=== PATIENT | female | born 1965 | race Caucasian/White ===

== ENCOUNTER 2019-05-29 14:35 | Emergency (ER) | payer OTHER, MEDICAID, SELFPAY ==
[2019-05-29 14:42] VITALS: BP 130/83; PULSE 103; RESP 16; TEMP 37.4; O2SAT 100; BMI 43.4
--- NOTE | 2019-05-29 14:46 | DI.RAD.S_ITS ---
PROCEDURE: XR SHOULDER RT MIN 2V INDICATIONS: right shoulder pain 6 mohnths TECHNIQUE: 3 views of the shoulder were acquired. COMPARISON: None. FINDINGS: Bones: Patient is status post prior reverse right shoulder arthroplasty with anatomic right shoulder alignment. No acute fractures or dislocations. No gross hardware loosening or failure. Acromioclavicular joint osteoarthritic changes are seen. No suspicious bony lesions. Visualized ribs appear intact. Soft tissues: No suspicious soft tissue calcifications. IMPRESSION: Prior right shoulder reverse arthroplasty with anatomic shoulder alignment. No acute fracture or dislocation. No gross hardware complication. Right acromioclavicular joint osteoarthritis. Dictated by: Pablo Mcwilliams M.D. on 05/29/2019 at 15:18 Approved by: Pablo Mcwilliams M.D. on 05/29/2019 at 15:20
[2019-05-29 15:30] VITALS: BP 132/61; PULSE 98; RESP 18; O2SAT 99
[2019-05-29] MEDS: KETOROLAC 60 MG/2 ML VIAL IM (16:48)
[2019-05-29] MEDS: CYCLOBENZAPRINE 10 MG TABLET PO (16:48)
[2019-05-29] MEDS: LIDOCAINE PATCH 1 EACH ADH..PATCH TOP (16:49)
[2019-05-29] MEDS: HYDROCODONE/ACET 5/325 TABLET 1 TAB PO (17:35)
[2019-05-29 17:47] VITALS: BP 115/69; PULSE 92; RESP 17; O2SAT 99
--- NOTE | 2019-05-29 17:50 | ED_ITS ---
HPI - Extremity Injury (Upper) <Pricilla Wagoner, EQUITIES ANALYST-BC - Last Filed: 05/29/19 18:10> General Chief Complaint: Extremity Injury, Upper Stated Complaint: states bad right shoulder, has bad joints. Time Seen by Provider: 05/29/19 16:04 Source: patient Mode of arrival: Wheelchair Limitations: no limitations History of Present Illness HPI narrative: The patient is a 54-year-old female ex smoker with history of arthritis who presents with a chief complaint of right shoulder pain. She states that she has had a right shoulder replacement. She states that her pain has been bad over the past few months, but got really bad over the past few days. She complains of decreased range of motion. She has tried no success. She states she has an appointment with an orthopedist in [place] next week. She states she has not fallen or had any trauma to the area. No redness or swelling for patient. Related Data Home Medications Medication Instructions Recorded Confirmed blood-glucose meter [True Metrix 05/29/19 05/29/19 Air Glucose Meter] ferrous sulfate 325 mg PO DAILY 05/29/19 05/29/19 glipizide 10 mg PO BID 05/29/19 05/29/19 insulin glargine U-300 conc 42 unit SUBCUT DAILY 05/29/19 05/29/19 [Toujeo SoloStar U-300 Insulin] lancets [TRUEplus Lancets] 05/29/19 05/29/19 liraglutide [Victoza 2-Ruddy] See Rx Instructions .ROUTE .COMPLEX 05/29/19 losartan 50 mg PO DAILY 05/29/19 05/29/19 lovastatin 20 mg PO QPM 05/29/19 05/29/19 metformin 1,000 mg PO BID 05/29/19 05/29/19 nortriptyline 75 mg PO QPM 05/29/19 05/29/19 pantoprazole 40 mg PO DAILY 05/29/19 05/29/19 sertraline 50 mg PO DAILY 05/29/19 05/29/19 Previous Rx's Medication Instructions Recorded cyclobenzaprine 10 mg PO TID PRN #20 tab 05/29/19 hydrocodone-acetaminophen [[place]] 1 tab PO Q4-6H PRN #5 tab 05/29/19 Allergies Allergy/AdvReac Type Severity Reaction Status Date / Time amoxicillin [From Augmentin] Allergy Verified 05/29/19 14:42 clavulanic acid Allergy Verified 05/29/19 14:42 [From Augmentin] quinine Allergy Verified 05/29/19 14:42 Sulfa (Sulfonamide Allergy Verified 05/29/19 14:42 Antibiotics) Review of Systems <MARLO Salazar - Last Filed: 05/29/19 18:10> Review of Systems Narrative: GENERAL: Denies chills, fatigue, malaise, fever, sweats. HEENT: Denies sinus pain, ear pain, sore throat, difficulty swallowing, dizziness. RESPIRATORY: Denies dyspnea, cough, wheezing, hemoptysis, sputum. CARDIOVASCULAR: Denies chest pain, palpitations, orthopnea, edema, GASTROINTESTINAL: Denies nausea, vomiting, abdominal pain, diarrhea, constipation, melena. : Denies dysuria, frequency, incontinence, hematuria, urinary retention. MUSCULOSKELETAL: See HPI SKIN: Denies rash, skin lesions, or other NEUROLOGIC: Denies weakness, headache, numbness, change in speech, confusion, seizures, incoordination. PSYCHIATRIC: No concerning psychosocial issues. 12 point review of systems is negative except for those stated above PFSH <MARLO Salazar - Last Filed: 05/29/19 18:10> Social History Smoking Status: Unknown if ever smoked Social History Smoking Status: Unknown if ever smoked Exam <MARLO Salazar - Last Filed: 05/29/19 18:10> Narrative Exam Narrative: GENERAL: This is a well-nourished, well-developed patient, appears uncomfortable HEAD: Atraumatic. Normocephalic. No temporal or scalp tenderness. EYES: Pupils equal round and reactive. Extraocular motions intact. No scleral icterus. No injection or drainage. ENT: Nose without bleeding, purulent drainage or septal hematoma. Throat without erythema, tonsillar hypertrophy or exudate. Uvula midline. Airway patent. NECK: Trachea midline. No JVD or lymphadenopathy. Supple, nontender, no meningeal signs. CARDIOVASCULAR: Regular rate and rhythm RESPIRATORY: No cough. No increased respiratory effort. No accessory muscle use. No stridor. No retractions. EXTREMITIES: Positive radial pulse right hand. Decreased range of motion all syed right shoulder. Patient would not allow me to evaluate range of motion. Is able to shrug shoulder. Good strength noted right hand and right wrist. BACK: Nontender without deformity or crepitance. No flank tenderness. NEURO: AOx3. SKIN: No rash or erythema ecchymosis or rash noted on right shoulder Initial Vital Signs Initial Vital Signs: Vital Signs Temperature 99.3 F 05/29/19 14:42 Pulse Rate 103 H 05/29/19 14:42 Respiratory Rate 16 05/29/19 14:42 Blood Pressure 130/83 05/29/19 14:42 Pulse Oximetry 100 05/29/19 14:42 <Germaine Hugo MD - Last Filed: 05/29/19 19:44> Initial Vital Signs Initial Vital Signs: Vital Signs Temperature 99.3 F 05/29/19 14:42 Pulse Rate 103 H 05/29/19 14:42 Respiratory Rate 16 05/29/19 14:42 Blood Pressure 130/83 05/29/19 14:42 Pulse Oximetry 100 05/29/19 14:42 Course <MARLO Salazar - Last Filed: 05/29/19 18:10> Orders Ordered: ED Orders 05/29/19 14:46 XR shoulder RT min 2V Stat Discontinued Medications Hydrocodone Bitart/Acetaminophen ([place] 5/325) 1 tab PO NOW ONE Stop: 05/29/19 17:31 Last Admin: 05/29/19 17:35 Dose: 1 tab Documented by: ALVARO Cyclobenzaprine HCl (Flexeril) 10 mg PO NOW ONE Stop: 05/29/19 16:17 Last Admin: 05/29/19 16:48 Dose: 10 mg Documented by: ALVARO Ketorolac Tromethamine (Toradol) 60 mg IM NOW ONE Stop: 05/29/19 16:17 Last Admin: 05/29/19 16:48 Dose: 60 mg Documented by: ALVARO Lidocaine (Lidoderm) 1 each TOP NOW ONE Stop: 05/29/19 16:17 Last Admin: 05/29/19 16:49 Dose: 1 each Documented by: ALVARO Vital Signs Vital signs: Vital Signs - 8 hr 05/29/19 14:42 05/29/19 15:30 05/29/19 17:47 Temperature 99.3 F Pulse Rate 103 H 98 H 92 H Respiratory Rate 16 18 17 Blood Pressure 130/83 Blood Pressure [Left Arm] 132/61 115/69 Pulse Oximetry 100 99 99 <Germaine Hugo MD - Last Filed: 05/29/19 19:44> Orders Ordered: ED Orders 05/29/19 14:46 XR shoulder RT min 2V Stat Discontinued Medications Hydrocodone Bitart/Acetaminophen ([place] 5/325) 1 tab PO NOW ONE Stop: 05/29/19 17:31 Last Admin: 05/29/19 17:35 Dose: 1 tab Documented by: ALVARO Cyclobenzaprine HCl (Flexeril) 10 mg PO NOW ONE Stop: 05/29/19 16:17 Last Admin: 05/29/19 16:48 Dose: 10 mg Documented by: ALVARO Ketorolac Tromethamine (Toradol) 60 mg IM NOW ONE Stop: 05/29/19 16:17 Last Admin: 05/29/19 16:48 Dose: 60 mg Documented by: ALVARO Lidocaine (Lidoderm) 1 each TOP NOW ONE Stop: 05/29/19 16:17 Last Admin: 05/29/19 16:49 Dose: 1 each Documented by: ALVARO Vital Signs Vital signs: Vital Signs - 8 hr 05/29/19 14:42 05/29/19 15:30 05/29/19 17:47 Temperature 99.3 F Pulse Rate 103 H 98 H 92 H Respiratory Rate 16 18 17 Blood Pressure 130/83 Blood Pressure [Left Arm] 132/61 115/69 Pulse Oximetry 100 99 99 MDM - Extremity Injury (Upper) <MARLO Salazar - Last Filed: 05/29/19 18:10> Imaging Data Shoulder x-ray: Radiologist's impression: HildaJeani 54 F [address] [address] XRay Report Signed Patient: Alek Stevens#: [id number] : 1965Acct:[id number] Age/Sex: 54 / FDate of Service: 05/29/19 Loc: ED Accession Number: [id number] Procedure: XR shoulder RT min 2V Ordering Provider: Germaine Hugo MD PROCEDURE: XR SHOULDER RT MIN 2V INDICATIONS: right shoulder pain 6 mohnths TECHNIQUE: 3 views of the shoulder were acquired. COMPARISON: None. FINDINGS: Bones: Patient is status post prior reverse right shoulder arthroplasty with anatomic right shoulder alignment. No acute fractures or dislocations. No gross hardware loosening or failure. Acromioclavicular joint osteoarthritic changes are seen. No suspicious bony lesions. Visualized ribs appear intact. Soft tissues: No suspicious soft tissue calcifications. IMPRESSION: Prior right shoulder reverse arthroplasty with anatomic shoulder alignment. No acute fracture or dislocation. No gross hardware complication. Right acromioclavicular joint osteoarthritis. Dictated by: Pablo Mcwilliams M.D. on 05/29/2019 at 15:18 Approved by: Pablo Mcwilliams M.D. on 05/29/2019 at 15:20 MDM Narrative Medical decision making narrative: The patient is a 54-year-old female with long history of arthritis who presents for chief complaint of right shoulder pain. She has an upcoming appointment with an orthopedist but states that the pain is too bad to wait till then. She is neurovascularly intact. She has no acute findings on her x-ray. I did run an audit on a controlled substance direct 3 for [facility] in found no recent narcotic prescriptions. I discussed at length coming back to the emergency department for any acute findings. The patient was placed in a sling. I did discuss the fact that slings are not recommended due to frozen shoulder, but I did help her pain and she is willing to take that risk. She is given Flexeril and Vicodin in the emergency de partment was prescribed small prescriptions of each. I discussed at length following up with PCP as well as her orthopedist. Patient has no questions or concerns upon discharge. Discharge Plan Departure Patient Disposition: Home Clinical Impression: Chronic left shoulder pain Discharge Date/Time: 05/29/19 18:00 Instructions: How to Use a Sling, How To Perform RICE (Rest, Ice, Compress, Elevate), DI for Shoulder Pain Activity Restrictions/Additional Instructions: Your shoulder x-ray does not show any acute fracture, dislocation or concerning findings. Please follow up with primary care provider as well as her orthopedist. I have given you small prescriptions of muscle relaxers and pain medication For the meantime. Please use rest ice compression. Please come back to the emergency department for any acute concerns such as concern of heart attack or stroke. Prescriptions: New hydrocodone-acetaminophen [[place]] 5-325 mg tablet 1 tab PO Q4-6H PRN (Reason: pain) Qty: 5 RF: 0 cyclobenzaprine 10 mg tablet 10 mg PO TID PRN (Reason: muscle spasm) Qty: 20 RF: 0 No Action losartan 50 mg tablet 50 mg PO DAILY RF: 0 (DME) blood-glucose meter [True Metrix Air Glucose Meter] [facility] MISCELLANEOUS RF: 0 glipizide 10 mg tablet 10 mg PO BID RF: 0 nortriptyline 75 mg capsule 75 mg PO QPM RF: 0 pantoprazole 40 mg tablet,delayed release (DR/EC) 40 mg PO DAILY RF: 0 ferrous sulfate 325 mg (65 mg iron) tablet 325 mg PO DAILY RF: 0 metformin 1,000 mg tablet 1,000 mg PO BID RF: 0 lovastatin 20 mg tablet 20 mg PO QPM RF: 0 sertraline 50 mg tablet 50 mg PO DAILY RF: 0 Victoza 2-Ruddy 0.6 mg/0.1 mL (18 mg/3 mL) pen injector See Rx Instructions .ROUTE .COMPLEX RF: 0 (DME) lancets [TRUEplus Lancets] 30 gauge [facility] MISCELLANEOUS RF: 0 [employer] SoloStar U-300 Insulin 300 unit/mL (1.5 mL) insulin pen 42 unit SUBCUT DAILY RF: 0
== END 2019-05-29 18:00 | disposition home or self-care (01) ==
PROVIDERS: Emergency Provider Nurse Practitioner Family
DX: M25.511 Pain in right shoulder (principal)
CPT/HCPCS: 73030; 96372; 99283; J1885

== ENCOUNTER 2019-10-13 10:10 | Outpatient (CLI) | payer OTHER, MEDICAID, SELFPAY ==
--- NOTE | 2019-10-13 13:42 | PT-OP ANOTE ---
Wheelchair evaluation only find the paper copy in her chart.
== END 2019-11-11 13:16 | disposition home or self-care (01) ==
LOC: PHYS 10:14
PROVIDERS: Referring Provider Nurse Practitioner Family; Visit Provider Nurse Practitioner Family
DX: Z99.3 Dependence on wheelchair (principal)
CPT/HCPCS: 97161

== ENCOUNTER 2019-12-08 20:10 | Emergency (ER) | payer OTHER, MEDICAID, SELFPAY ==
--- NOTE | 2019-12-08 20:16 | DI.RAD.S_ITS ---
PROCEDURE: XR SHOULDER RT MIN 2V INDICATIONS: pain, swelling TECHNIQUE: 2 views of the shoulder were acquired. COMPARISON: [facility], CR, XR SHOULDER RT MIN 2V, 05/29/2019, 14:53. FINDINGS: Bones: Patient is status post reverse right shoulder arthroplasty. There is high riding proximal humerus in relation to acetabular component suggestive of dislocation of the prosthesis. No gross fracture is seen. No suspicious bony lesions. Visualized ribs appear intact. Soft tissues: No suspicious soft tissue calcifications. IMPRESSION: Finding is concerning for dislocated right shoulder arthroplasty hardware. No gross fracture is seen. Dictated by: Pablo Mcwilliams M.D. on 12/08/2019 at 20:35 Approved by: Pablo Mcwilliams M.D. on 12/08/2019 at 20:37
[2019-12-08 20:20] VITALS: PULSE 88
[2019-12-08 20:57] VITALS: BP 135/74; PULSE 77; RESP 19; O2SAT 97
--- NOTE | 2019-12-08 21:14 | ED_ITS ---
HPI - Extremity Injury (Upper) General Chief Complaint: Extremity Injury, Upper Stated Complaint: GLF/ Shoulder Pain Time Seen by Provider: 12/08/19 20:12 Source: patient and EMS Mode of arrival: EMS Limitations: no limitations History of Present Illness HPI narrative: 54-year-old female nonsmoker with history of diabetes and multiple prior orthopedic surgeries presents by EMS with a chief complaint of severe right shoulder pain. While walking she tripped and fell onto her right shoulder and now has significant pain with any range of motion or palpation. She denies any head neck or back pain. She has full recall of the event. She denies any numbness, weakness or tingling. She denies any elbow or wrist pain on the affected side. Range of motion or palpation hurts and resting it helps improve the symptoms. Patient was given an IV, fentanyl 200 micro g IV, and a sling prior to arrival and has some improvement of symptoms. MD complaint: injury to: right Onset (ago): minute(s) Other injuries: none Handedness: right Place: home Severity: moderate Relieving factors: rest Exacerbating factors: movement of extremity Context: fall and direct blow Associated symptoms: denies other symptoms Related Data Home Medications Medication Instructions Recorded Confirmed blood-glucose meter [True Metrix 05/29/19 05/29/19 Air Glucose Meter] ferrous sulfate 325 mg PO DAILY 05/29/19 05/29/19 glipizide 10 mg PO BID 05/29/19 05/29/19 insulin glargine U-300 conc 42 unit SUBCUT DAILY 05/29/19 05/29/19 [Toujeo SoloStar U-300 Insulin] lancets [TRUEplus Lancets] 05/29/19 05/29/19 liraglutide [Victoza 2-Ruddy] See Rx Instructions .ROUTE .COMPLEX 05/29/19 losartan 50 mg PO DAILY 05/29/19 05/29/19 lovastatin 20 mg PO QPM 05/29/19 05/29/19 metformin 1,000 mg PO BID 05/29/19 05/29/19 nortriptyline 75 mg PO QPM 05/29/19 05/29/19 pantoprazole 40 mg PO DAILY 05/29/19 05/29/19 sertraline 50 mg PO DAILY 05/29/19 05/29/19 Previous Rx's Medication Instructions Recorded cyclobenzaprine 10 mg PO TID PRN #20 tab 05/29/19 hydrocodone-acetaminophen [[place]] 1 tab PO Q4-6H PRN #5 tab 05/29/19 hydrocodone-acetaminophen 1 tab PO Q4-6H PRN #10 tab 12/08/19 Allergies Allergy/AdvReac Type Severity Reaction Status Date / Time amoxicillin [From Augmentin] Allergy Verified 12/08/19 20:16 clavulanic acid Allergy Verified 12/08/19 20:16 [From Augmentin] quinine Allergy Verified 12/08/19 20:16 Sulfa (Sulfonamide Allergy Verified 12/08/19 20:16 Antibiotics) Review of Systems Constitutional Constitutional: Denies chills, Denies fatigue, Denies fever(s), Denies frequent falls, Denies lethargy and Denies weakness Eyes Eyes: Denies change in vision, Denies eye discharge, Denies irritation and Denies loss of vision ENT Ears, Nose, Mouth, and Throat: Denies change in voice, Denies dizziness, Denies neck pain, Denies sore throat and Denies throat swelling Cardiovascular Cardiovascular: Denies chest pain, Denies irregular heart rhythm, Denies lightheadedness, Denies palpitations, Denies dyspnea, Denies dyspnea on exertion and Denies orthopnea Respiratory Respiratory: Denies cough, Denies dyspnea, Denies dyspnea on exertion and Denies wheezing Gastrointestinal Gastrointestinal: Denies abdominal pain, Denies change in bowel habits, Denies diarrhea, Denies nausea and Denies vomiting Genitourinary Genitourinary: Denies hematuria, Denies flank pain, Denies urinary incontinence and Denies urinary urgency Musculoskeletal Musculoskeletal: Denies back pain, Reports limited range of motion, Denies muscle weakness, Denies neck pain, Denies numbness and Denies tingling Integumentary/Breasts Skin/Breast: Denies pruritus, Denies erythema, Denies rash and Denies wounds Neurologic Neurologic: Denies behavioral changes, Denies confusion, Denies dizziness, Denies frequent falls, Denies loss of vision, Denies numbness, Denies tingling and Denies weakness Psychiatric Psychiatric: Denies anxiety, Denies behavioral changes, Denies confusion, Denies depression, Denies homicidal ideation and Denies suicidal ideation Endocrine Endocrine: Denies fatigue, Denies flushing and Denies palpitations Hematologic/Lymphatic Hematologic/Lymphatic: Denies easy bruising Allergic/Immunologic Allergic/Immunologic: Denies urticaria, Denies throat swelling and Denies wheezing Patient History Social History Smoking Status: Unknown if ever smoked Smoking Status: Unknown if ever smoked alcohol intake frequency: holidays/special occasions only Substance Use Type: does not use Exam Narrative Exam Narrative: GENERAL: [54] year old patient appears stated age. Well- nourished, well-developed patient, in mild distress. HEAD: Atraumatic. Normocephalic. EYES: Pupils equal round and reactive. Extraocular motions intact. No scleral icterus. No injection or drainage. ENT: Nose without bleeding, purulent drainage. Throat without erythema, tonsillar hypertrophy or exudate. Airway patent. NECK: Trachea midline. Non tender CARDIOVASCULAR: Regular rate and rhythm without murmurs, gallops, or rubs. RESPIRATORY: Clear to auscultation. Breath sounds equal bilaterally. No wheezes, rales, or rhonchi. GASTROINTESTINAL: Abdomen soft, non-tender, nondistended. EXTREMITIES: Right upper extremity in a sling, tender to palpation along clavicle, painful range of motion but patient able to use right hand to touch left shoulder and chicken wing motion her arm suggesting low likelihood of dislocation. She has no numbness, tingling or weakness. No tenderness to palpation of elbow or wrist. Cap refill less than 2 seconds. BACK: Nontender without deformity or crepitance. No flank tenderness. NEURO: AOx3. SKIN: No rash or erythema of visible areas Initial Vital Signs Initial Vital Signs: Vital Signs Pulse Rate 88 12/08/19 20:20 Course Orders Ordered: ED Orders 12/08/19 20:16 XR shoulder RT min 2V Stat Discontinued Medications Hydrocodone Bitart/Acetaminophen (Vicodin 5/325 Prepack) 1 bottle MISC SEEINSTR ONE Stop: 12/08/19 21:25 Last Admin: 12/08/19 21:42 Dose: 1 bottle Documented by: [email or web address] Vital Signs Vital signs: Vital Signs - 8 hr 12/08/19 20:20 12/08/19 20:57 Pulse Rate 77 Pulse Rate [Right Radial] 88 Respiratory Rate 19 Blood Pressure [Left Wrist] 135/74 Pulse Oximetry 97 MDM - Extremity Injury (Upper) Imaging Data Extremity x-ray #1: Radiologist's Impression: Iram Stevens 54 F [address] [address] XRay Report Signed Patient: Alek Stevens#: [id number] : 1965Acct:[id number] Age/Sex: 54 / FDate of Service: 12/08/19 Loc: ED Accession Number: [id number] Procedure: XR shoulder RT min 2V Ordering Provider: Diomedes York D.O. PROCEDURE: XR SHOULDER RT MIN 2V INDICATIONS: pain, swelling TECHNIQUE: 2 views of the shoulder were acquired. COMPARISON: [facility], CR, XR SHOULDER RT MIN 2V, 05/29/2019, 14:53. FINDINGS: Bones: Patient is status post reverse right shoulder arthroplasty. There is high riding proximal humerus in relation to acetabular component suggestive of dislocation of the prosthesis. No gross fracture is seen. No suspicious bony lesions. Visualized ribs appear intact. Soft tissues: No suspicious soft tissue calcifications. IMPRESSION: Finding is concerning for dislocated right shoulder arthroplasty hardware. No gross fracture is seen. Dictated by: Pablo Mcwilliams M.D. on 12/08/2019 at 20:35 Approved by: Pablo Mcwilliams M.D. on 12/08/2019 at 20:37 [facility] Narrative Medical decision making narrative: Initial Xrays are not ideal and have been retaken. The initial set suggests possible dislocation, but repeat Xrays (viewed by ortho) and exam are NOT consistent with dislocation. Patient placed in sling and given pain control. She and have had questions answered to their apparent satisfaction and understand the return precautions Discharge Plan Departure Patient Disposition: Home Clinical Impression: Injury of right shoulder Qualifiers: Encounter type: initial encounter Qualified Code(s): S49.91XA - Unspecified injury of right shoulder and upper arm, initial encounter Instructions: DI for Shoulder Sprain Activity Restrictions/Additional Instructions: *You have been diagnosed with [right shoulder injury. X-rays have been reviewed by our on-call orthopedist and there is no fracture or dislocation.] *What to do: *Take medications as directed *Follow up with your orthopedic provider in [place] in 2-3 days, call for an appointment. Let them know you were seen in the Emergency Department and that we ask that you be seen in follow up. In the event that you have difficulty seeing your orthopedist I have given you contact information for [facility] *Return to ER if you should have any new, worsening or concerning symptoms, such as [ ] Prescriptions: New hydrocodone-acetaminophen 5-325 mg tablet 1 tab PO Q4-6H PRN (Reason: pain) Qty: 10 RF: 0 No Action losartan 50 mg tablet 50 mg PO DAILY RF: 0 (DME) blood-glucose meter [True Metrix Air Glucose Meter] misc MISCELLANEOUS RF: 0 glipizide 10 mg tablet 10 mg PO BID RF: 0 nortriptyline 75 mg capsule 75 mg PO QPM RF: 0 pantoprazole 40 mg tablet,delayed release (DR/EC) 40 mg PO DAILY RF: 0 ferrous sulfate 325 mg (65 mg iron) tablet 325 mg PO DAILY RF: 0 metformin 1,000 mg tablet 1,000 mg PO BID RF: 0 lovastatin 20 mg tablet 20 mg PO QPM RF: 0 sertraline 50 mg tablet 50 mg PO DAILY RF: 0 Victoza 2-Ruddy 0.6 mg/0.1 mL (18 mg/3 mL) pen injector See Rx Instructions .ROUTE .COMPLEX RF: 0 (DME) lancets [TRUEplus Lancets] 30 gauge misc MISCELLANEOUS RF: 0 Toujeo SoloStar U-300 Insulin 300 unit/mL (1.5 mL) insulin pen 42 unit SUBCUT DAILY RF: 0 hydrocodone-acetaminophen [[place]] 5-325 mg tablet 1 tab PO Q4-6H PRN (Reason: pain) Qty: 5 RF: 0 cyclobenzaprine 10 mg tablet 10 mg PO TID PRN (Reason: muscle spasm) Qty: 20 RF: 0 Referrals: Arnulfo Rubio MD [Physician] -
[2019-12-08] MEDS: HYDROCODONE/ACET 5/325 PREPACK 1 BOTTLE MISC (21:42)
[2019-12-08 21:43] VITALS: BP 143/78; PULSE 84; RESP 20; O2SAT 99
== END 2019-12-08 21:43 | disposition home or self-care (01) ==
PROVIDERS: Emergency Provider Emergency Medicine
DX: S49.91XA Unspecified injury of right shoulder and upper arm, initial encounter (principal); W01.0XXA Fall on same level from slipping, tripping and stumbling without subsequent striking against object, initial encounter
CPT/HCPCS: 73030; 99283

== ENCOUNTER 2020-02-24 13:46 | Emergency (ER) | payer OTHER, MEDICAID, SELFPAY ==
[2020-02-24 13:55] VITALS: BP 168/89; PULSE 91; RESP 18; TEMP 37.1; O2SAT 98; BMI 42.7
--- NOTE | 2020-02-24 14:06 | ED.GENADULT ---
HPI - General Adult General Chief complaint: Extremity Injury, Upper Stated complaint: left shoulder popped/throbbing Time Seen by Provider: 02/24/20 13:49 Source: patient Mode of arrival: Ambulatory Limitations: no limitations History of Present Illness HPI narrative: 54-year-old female with multiple orthopedic injuries to include a right shoulder total arthroplasty. Here for evaluation of right shoulder pain. Patient states that yesterday afternoon she said down her glasses and she was moving her arm she heard/felt a pop in the right shoulder. Since then she has had ?excruciating? pain. She has had a rotator cuff tear in her left arm she states this feels like that in her right arm. Does have tingling going down to her arm. States that it gets worse when she moves it. It improves only small amount with leaving her arm still. Has not contacted her primary doctor about this. No fevers. Is taking her baseline medications prior to arrival. Related Data Home Medications Medication Instructions Recorded Confirmed blood-glucose meter [True Metrix 05/29/19 05/29/19 Air Glucose Meter] ferrous sulfate 325 mg PO DAILY 05/29/19 05/29/19 glipizide 10 mg PO BID 05/29/19 05/29/19 insulin glargine U-300 conc 42 unit SUBCUT DAILY 05/29/19 05/29/19 [T[place] SoloStar U-300 Insulin] lancets [TRUEplus Lancets] 05/29/19 05/29/19 liraglutide [Victoza 2-Ruddy] See Rx Instructions .ROUTE .COMPLEX 05/29/19 losartan 50 mg PO DAILY 05/29/19 05/29/19 lovastatin 20 mg PO QPM 05/29/19 05/29/19 metformin 1,000 mg PO BID 05/29/19 05/29/19 nortriptyline 75 mg PO QPM 05/29/19 05/29/19 pantoprazole 40 mg PO DAILY 05/29/19 05/29/19 sertraline 50 mg PO DAILY 05/29/19 05/29/19 Previous Rx's Medication Instructions Recorded cyclobenzaprine 10 mg PO TID PRN #20 tab 05/29/19 hydrocodone-acetaminophen [[place]] 1 tab PO Q4-6H PRN #5 tab 05/29/19 hydrocodone-acetaminophen 1 tab PO Q4-6H PRN #10 tab 12/08/19 hydrocodone-acetaminophen [[place]] 1 tab PO Q4-6H PRN #7 tab 02/24/20 Allergies Allergy/AdvReac Type Severity Reaction Status Date / Time amoxicillin [From Augmentin] Allergy Verified 12/08/19 20:16 clavulanic acid Allergy Verified 12/08/19 20:16 [From Augmentin] duloxetine Allergy Verified 02/24/20 14:02 liraglutide Allergy Verified 02/24/20 14:02 quinine Allergy Hypotension Verified 02/24/20 14:02 Sulfa (Sulfonamide Allergy Verified 12/08/19 20:16 Antibiotics) Review of Systems Constitutional Constitutional: Denies fever(s) Cardiovascular Cardiovascular: Denies chest pain Musculoskeletal Comments: Right shoulder pain Integumentary/Breasts Skin/Breast: Denies rash Neurologic Comments: Tingling down right arm Hematologic/Lymphatic Hematologic/Lymphatic: Denies easy bleeding and Denies easy bruising Patient History Medical History Arthritis (Acute) Social History Smoking Status: Unknown if ever smoked Smoking Status: Unknown if ever smoked alcohol intake frequency: holidays/special occasions only Substance Use Type: does not use Exam Initial Vital Signs Initial Vital Signs: Vital Signs Temperature 98.8 F 02/24/20 13:55 Pulse Rate 91 H 02/24/20 13:55 Respiratory Rate 18 02/24/20 13:55 Blood Pressure 168/89 H 02/24/20 13:55 Pulse Oximetry 98 02/24/20 13:55 Const General: cooperative and comfortable Limitations: mental status not altered Resp Effort & Inspection: normal respiratory effort Cardio Pulses: radial pulses present on the right Skin Lesions: no lesions Rashes: no rashes Extrem Other: Patient with tenderness to palpation posterior right shoulder and with any movement of her right shoulder. She is also tender over the biceps tendon. Very difficult to obtain a further evaluation of her shoulder more than this secondary to the patient's discomfort. Course Orders Ordered: ED Orders 02/24/20 14:13 XR shoulder RT min 2V Stat Discontinued Medications Hydrocodone Bitart/Acetaminophen ([place] 5/325) 1 tab PO NOW ONE Stop: 02/24/20 14:34 Last Admin: 02/24/20 14:40 Dose: 1 tab Documented by: KSFARHEEN Vital Signs Vital signs: Vital Signs - 8 hr 02/24/20 13:55 02/24/20 14:10 Temperature 98.8 F Pulse Rate 91 H Pulse Rate [Right Radial] 91 H Respiratory Rate 18 Blood Pressure 168/89 H Pulse Oximetry 98 Medical Decision Making Imaging Data Extremity x-ray #1: Radiologist's Impression: [address] [address] XRay Report Signed Patient: Alek Stevens#: [id number] : 1965Acct:[id number] Age/Sex: 54 / FDate of Service: 02/24/20 Loc: ED Accession Number: [id number] Procedure: XR shoulder RT min 2V Ordering Provider: Juan Francisco Dawson D.O. PROCEDURE: XR SHOULDER RT MIN 2V INDICATIONS: pain after injury TECHNIQUE: 3 views of the shoulder were acquired. COMPARISON: [facility], CR, XR SHOULDER RT MIN 2V, 12/08/2019, 20:54. [facility], CR, XR SHOULDER RT MIN 2V, 12/08/2019, 20:10. FINDINGS: Bones: No fractures or dislocations. No suspicious bony lesions. Visualized ribs appear intact. There is a humeral arthroplasty at the right shoulder. Soft tissues: No suspicious soft tissue calcifications. IMPRESSION: Right shoulder humeral arthroplasty, no acute trauma found. Dictated by: Gómez Flores M.D. on 02/24/2020 at 13:23 Approved by: Gómez Flores M.D. on 02/24/2020 at 13:23 [facility] Narrative Medical decision making narrative: X-ray show no acute fractures. She is neurovascularly intact. Suspect muscular injury. Unfortunately cannot distinguish definitively if this is a sprain verses a rotator cuff tear. No indication for an emergent MRI. Will send home with symptom treatment. Also send home with a sling. She was informed to stay out of the sling as much as possible for concern of a frozen shoulder. She expressed understanding of this. She is going to contact her primary doctor and also orthopedic doctor for follow-up. Discharge Plan Departure Patient Disposition: Home Clinical Impression: Pain in right shoulder Qualifiers: Chronicity: unspecified Qualified Code(s): M25.511 - Pain in right shoulder Instructions: How to Use a Sling, How To Perform RICE (Rest, Ice, Compress, Elevate) Activity Restrictions/Additional Instructions: Recommend you talk with your primary provider and/or your orthopedic provider about further workup to include indications for physical therapy or an MRI. I advised that you try to avoid using the sling as much as possible to avoid having worsening problems to include a frozen shoulder. The sling is only for your comfort. The x-rays did not show any signs of fracture. Use the pain medication as directed. Contact your primary provider if you require further medications. Prescriptions: New hydrocodone-acetaminophen [[place]] 5-325 mg tablet 1 tab PO Q4-6H PRN (Reason: pain) Qty: 7 RF: 0 No Action losartan 50 mg tablet 50 mg PO DAILY RF: 0 (DME) blood-glucose meter [True Metrix Air Glucose Meter] mis MISCELLANEOUS RF: 0 glipizide 10 mg tablet 10 mg PO BID RF: 0 nortriptyline 75 mg capsule 75 mg PO QPM RF: 0 pantoprazole 40 mg tablet,delayed release (DR/EC) 40 mg PO DAILY RF: 0 ferrous sulfate 325 mg (65 mg iron) tablet 325 mg PO DAILY RF: 0 metformin 1,000 mg tablet 1,000 mg PO BID RF: 0 lovastatin 20 mg tablet 20 mg PO QPM RF: 0 sertraline 50 mg tablet 50 mg PO DAILY RF: 0 Victoza 2-Ruddy 0.6 mg/0.1 mL (18 mg/3 mL) pen injector See Rx Instructions .ROUTE .COMPLEX RF: 0 (DME) lancets [TRUEplus Lancets] 30 gauge mis MISCELLANEOUS RF: 0 [place] SoloStar U-300 Insulin 300 unit/mL (1.5 mL) insulin pen 42 unit SUBCUT DAILY RF: 0 hydrocodone-acetaminophen [[place]] 5-325 mg tablet 1 tab PO Q4-6H PRN (Reason: pain) Qty: 5 RF: 0 cyclobenzaprine 10 mg tablet 10 mg PO TID PRN (Reason: muscle spasm) Qty: 20 RF: 0 hydrocodone-acetaminophen 5-325 mg tablet 1 tab PO Q4-6H PRN (Reason: pain) Qty: 10 RF: 0
[2020-02-24 14:10] VITALS: PULSE 91
--- NOTE | 2020-02-24 14:13 | DI.RAD.S_ITS ---
PROCEDURE: XR SHOULDER RT MIN 2V INDICATIONS: pain after injury TECHNIQUE: 3 views of the shoulder were acquired. COMPARISON: [facility], CR, XR SHOULDER RT MIN 2V, 12/08/2019, 20:54. [facility], CR, XR SHOULDER RT MIN 2V, 12/08/2019, 20:10. FINDINGS: Bones: No fractures or dislocations. No suspicious bony lesions. Visualized ribs appear intact. There is a humeral arthroplasty at the right shoulder. Soft tissues: No suspicious soft tissue calcifications. IMPRESSION: Right shoulder humeral arthroplasty, no acute trauma found. Dictated by: Gómez Flores M.D. on 02/24/2020 at 13:23 Approved by: Gómez Flores M.D. on 02/24/2020 at 13:23
[2020-02-24] MEDS: HYDROCODONE/ACET 5/325 TABLET 1 TAB PO (14:40)
[2020-02-24 15:01] VITALS: BP 154/85; PULSE 65; RESP 14; O2SAT 98
== END 2020-02-24 15:03 | disposition home or self-care (01) ==
PROVIDERS: Emergency Provider Emergency Medicine
DX: M25.511 Pain in right shoulder (principal)
CPT/HCPCS: 73030; 99283; 99284

== ENCOUNTER 2020-03-31 13:37 | Outpatient (CLI) | payer OTHER, MEDICAID, SELFPAY ==
--- NOTE | 2020-03-31 16:21 | PT.OIE ---
Current Diagnoses Dependence on wheelchair (03/31/20) Past Medical History (Last Reviewed 02/24/20 @ 14:53 by Juan Francisco Dawson DO) Arthritis (Acute) Visit Care Team Role Provider Type JIMI Jones, GIBRAN-C Attending Provider Non-Staff Primary Care Provider Referring Provider Specialty: Family Practice Address: [address] [place] [address], [address], [place], [address] Email:
== END 2020-04-07 10:47 | disposition home or self-care (01) ==
LOC: PHYS 13:39
PROVIDERS: PCP Nurse Practitioner Family; Referring Provider Nurse Practitioner Family; Visit Provider Nurse Practitioner Family
DX: Z99.3 Dependence on wheelchair (principal)
CPT/HCPCS: 97161

== ENCOUNTER → 2020-05-12 14:01 | Outpatient (CLI) | payer OTHER, MEDICAID, SELFPAY | PROVIDERS: PCP Nurse Practitioner Family; Referring Provider Nurse Practitioner Family; Visit Provider Family Medicine | DX: S21.002A Unspecified open wound of left breast, initial encounter (principal); L08.9 Local infection of the skin and subcutaneous tissue, unspecified; E11.622 Type 2 diabetes mellitus with other skin ulcer | CPT/HCPCS: 87070; 87075; 87077; 87147; 87186; 87205; 97597; 99203; 99213 ==

== ENCOUNTER → 2020-05-26 12:55 | Outpatient (CLI) | payer OTHER, MEDICAID, SELFPAY | PROVIDERS: PCP Nurse Practitioner Family; Referring Provider Nurse Practitioner Family; Visit Provider Family Medicine | DX: S81.802A Unspecified open wound, left lower leg, initial encounter (principal); E11.622 Type 2 diabetes mellitus with other skin ulcer | CPT/HCPCS: 97597; 99214 ==

== ENCOUNTER 2020-06-07 13:41 | Emergency (ER) | payer OTHER, MEDICAID, SELFPAY ==
[2020-06-07 13:58] VITALS: PULSE 81; O2SAT 99
[2020-06-07 14:07] VITALS: BP 151/69; PULSE 83; RESP 20; TEMP 36.7; O2SAT 98
[2020-06-07] MEDS: ACETAMINOPHEN 325 MG TABLET PO (14:27)
[2020-06-07] MEDS: HYDROCODONE/ACET 5/325 TABLET 1 TAB PO (14:28)
--- NOTE | 2020-06-08 00:07 | ED.LOWEXIN ---
HPI - Extremity Injury (Lower) <JIMI Hickman - Last Filed: 06/08/20 00:37> General Chief Complaint: Extremity Injury, Lower Stated Complaint: 'need to have my leg redone' Time Seen by Provider: 06/07/20 13:58 Source: patient Mode of arrival: other Limitations: no limitations History of Present Illness HPI Narrative: This is a 55 year female, nonsmoker, who has history of severe osteoarthritis with several orthopedic surgeries in hip, knees, shoulders and fibromyalgia presents to ED requesting for putting a new long leg splint on right leg. Patient was evaluated on 05/29/20 at [facility] with x-ray tests on right ankle and knee which showed no acute findings (The patient showed the patients's on-line portal Xray reports) after she accidentally fell out of the new wheelchair. The affected leg was placed on a ortho glass long leg splint but last night somehow the splint broke. Patient has an appointment with the established ophthalmologist retina specialist in [place] in 2 days. Patient reports pain is excruciating in medial and lateral ankle and lateral knee and rates as 10/10 especially worse with movements and palpation. Patient reports intact sensation and is able to move toes. Patient is also waiting to be seen by pain specialist in [place] soon. Related Data Home Medications Medication Instructions Recorded Confirmed blood-glucose meter [True Metrix 05/29/19 05/29/19 Air Glucose Meter] ferrous sulfate 325 mg PO DAILY 05/29/19 05/29/19 glipizide 10 mg PO BID 05/29/19 05/29/19 insulin glargine U-300 conc 42 unit SUBCUT DAILY 05/29/19 05/29/19 [T[place]wa[place]as SoloStar U-300 Insulin] lancets [TRUEplus Lancets] 05/29/19 05/29/19 liraglutide [Victoza 2-Ruddy] See Rx Instructions .ROUTE .COMPLEX 05/29/19 losartan 50 mg PO DAILY 05/29/19 05/29/19 lovastatin 20 mg PO QPM 05/29/19 05/29/19 metformin 1,000 mg PO BID 05/29/19 05/29/19 nortriptyline 75 mg PO QPM 05/29/19 05/29/19 pantoprazole 40 mg PO DAILY 05/29/19 05/29/19 sertraline 50 mg PO DAILY 05/29/19 05/29/19 Aspirin Childrens 81 mg 06/08/20 buspirone mg 06/08/20 famotidine 06/08/20 ferrous sulfate 06/08/20 insulin glargine U-300 conc unit SUBCUT 06/08/20 [T[place]wa[place] VidesoStar U-300 Insulin] losartan 06/08/20 metformin mg 06/08/20 metformin mg 06/08/20 metoprolol succinate PO 06/08/20 pioglitazone mg 06/08/20 pioglitazone mg 06/08/20 Previous Rx's Medication Instructions Recorded cyclobenzaprine 10 mg PO TID PRN #20 tab 05/29/19 hydrocodone-acetaminophen [Zirconia] 1 tab PO Q4-6H PRN #5 tab 05/29/19 hydrocodone-acetaminophen 1 tab PO Q4-6H PRN #10 tab 12/08/19 hydrocodone-acetaminophen [Zirconia] 1 tab PO Q4-6H PRN #7 tab 02/24/20 Allergies Allergy/AdvReac Type Severity Reaction Status Date / Time amoxicillin [From Augmentin] Allergy Verified 12/08/19 20:16 clavulanic acid Allergy Verified 12/08/19 20:16 [From Augmentin] duloxetine Allergy Verified 02/24/20 14:02 ibuprofen Allergy Verified 06/08/20 00:21 liraglutide Allergy Verified 02/24/20 14:02 quinine Allergy Hypotension Verified 02/24/20 14:02 Sulfa (Sulfonamide Allergy Verified 12/08/19 20:16 Antibiotics) Review of Systems <JIMI Hickman - Last Filed: 06/08/20 00:37> Review of Systems Narrative: General: Denies fever, chills, fatigue, malaise, sweats. Respiratory: Denies dyspnea, cough, wheezing, hemoptysis, sputum. Cardiovascular: Denies chest pain, palpitations, orthopnea, edema. Gastrointestinal: Denies nausea, vomiting, abdominal pain, diarrhea, constipation, melena. : Denies dysuria, frequency, incontinence, hematuria, urinary retention. Musculoskeletal: See HPI Skin: Denies rash, skin lesions, or other. Neurologic: Denies weakness, headache, numbness, change in speech, confusion, seizures, incoordination. Psychiatric: No concerning psychosocial issues. Patient History <JIMI Hickman - Last Filed: 06/08/20 00:37> Medical History (Updated 06/08/20 @ 00:24 by JIMI Hickman) Anxiety (Acute) Arthritis (Acute) Depression (Acute) Diabetes (Acute) Fibromyalgia (Acute) GERD (gastroesophageal reflux disease) (Acute) Hyperlipidemia (Acute) Hypertension (Acute) Osteoarthritis (Acute) Surgical History (Updated 06/08/20 @ 00:24 by JIMI Hickman) History of appendectomy (Acute) History of cholecystectomy (Acute) History of hip surgery (Acute) History of knee surgery (Acute) History of shoulder surgery (Acute) History of total hysterectomy (Acute) Social History Smoking Status: Unknown if ever smoked Smoking Status: Unknown if ever smoked alcohol intake frequency: holidays/special occasions only Substance Use Type: does not use Exam <JIMI Hickman - Last Filed: 06/08/20 00:37> Narrative Exam Narrative: General appearance: well developed, well nourished, in no acute distress. Head: normocephalic, atraumatic, no scalp lesions, non-tender. ENT: Hearing grossly intact. Nose without bleeding, purulent discharge. Airway patent. Neck/Thyroid: neck supple, full range of motion, no visible masses or meningeal signs. No JVD, non-tender without lymphadenopathy. Skin: no suspicious rashes, lesions over visible areas. Warm and dry and appropriate color for ethnicity. Heart: no clubbing, no cyanosis, no edema. S1 and S2 normal. RRR w/o murmurs, clicks, or bruits. Lungs: Breathing even and unlabored. No stridor. No accessory muscles used. Able to speak in full sentences. Chest: normal shape and expansion. Abdomen: non-obese, non-distended. Neurologic: alert and oriented. Cognitive exam, SKEINER and PNS grossly intact on informal exam. Psych: good eye contact, normal affect. Initial Vital Signs Initial Vital Signs: Vital Signs Pulse Rate 81 06/07/20 13:58 Pulse Oximetry 99 06/07/20 13:58 Extrem Right lower extremity: normal to inspection, normal capillary refill, no joint enlargement, knee Details: normal to inspection, tenderness Location: of the lateral joint line, abnormal ROM Details: pain with active ROM during and pain with passive ROM during and Carmen's Test Details: positive medially and laterally; no abrasions, no lacerations, no ecchymosis, no deformity and no unusual warmth, ankle Details: normal to inspection, tenderness Location: of the lateral malleolus and of the medial malleolus, no edema, abnormal ROM Details: pain with active ROM and pain with passive ROM and achilles tendon exam abnormal; no abrasions, no lacerations and no ecchymosis and foot Details: normal capillary refill, normal to inspection, toes with normal ROM, no edema, vascular exam Details: dorsalis pedis pulse present (intact but slightly decreased when compared with unaffected site) and posterior tibial pulse present (intact but slightly decreased when compared with unaffected site) and motor-sensory exam Details: light-touch normal; no tenderness, no unusual warmth and no ecchymosis; no cyanosis <Genie Lowery DO - Last Filed: 06/12/20 07:33> Initial Vital Signs Initial Vital Signs: Vital Signs Pulse Rate 81 06/07/20 13:58 Pulse Oximetry 99 06/07/20 13:58 Procedures <JIMI Hickman - Last Filed: 06/08/20 00:37> Orthopedic Splinting/Casting Injury #1: Side: right Lower Extremity Injury Location: knee and ankle Lower Extremity Immobilizer: posterior splint (long leg and stir up in ankle) Other Orthopedic Equipment: other (electrical wheelchair) Post splinting neuro exam: intact Post splinting vascular exam: intact Placed by: Nursing Scores <JIMI Hickman - Last Filed: 06/08/20 00:37> GCS [place] coma scale eye opening: Spontaneous [place] coma scale verbal response: Orientated [place] coma scale motor response: Obey commands [place] coma scale total score: 15 Course <JIMI Hickman - Last Filed: 06/08/20 00:37> Orders Ordered: Discontinued Medications Acetaminophen (Tylenol) 325 mg PO NOW ONE Stop: 06/07/20 14:19 Last Admin: 06/07/20 14:27 Dose: 325 mg Documented by: LMISQUITTA Hydrocodone Bitart/Acetaminophen ([place] 5/325) 1 tab PO NOW ONE Stop: 06/07/20 14:18 Last Admin: 06/07/20 14:28 Dose: 1 tab Documented by: CLARIBEL <Genie Lowery DO - Last Filed: 06/12/20 07:33> Orders Ordered: Discontinued Medications Acetaminophen (Tylenol) 325 mg PO NOW ONE Stop: 06/07/20 14:19 Last Admin: 06/07/20 14:27 Dose: 325 mg Documented by: CLARIBEL Hydrocodone Bitart/Acetaminophen ([place] 5/325) 1 tab PO NOW ONE Stop: 06/07/20 14:18 Last Admin: 06/07/20 14:28 Dose: 1 tab Documented by: CLARIBEL MDM - Extremity Injury (Lower) <JIMI Hickman - Last Filed: 06/08/20 00:37> Differential Diagnosis Differential diagnosis: Likely ankle sprain and strain and acute internal derangement of knee Medical Records Attestation: I reviewed the patient's medical records. Medical records narrative: EHR and patient portal report of xray tests on right ankle and knee from 05/29/20-No acute findings. MDM Narrative Medical decision making narrative: Patient has intact sensation, brisk cap refill, intact circulation on dorsal pedal pulse which as slightly weaker than unaffected foot. Skin is warm and dry in left foot. There is no significant swelling or ecchymosis, deformity appreciated. Patient is here for splint on right lower leg since previous splint broke last night should declines to go back to [facility]. Patient reports has a follow-up appointment with her orthopedist in [place] in 2 days and orthopedists request to have on affected leg splinted before the evaluation and treatment. Patient offered knee immobilizer with stirrup ankle splint but she declined this stating the knee immobilizer does not work for her since her thighs are large and lower leg is relatively skinny. Patient placed done long leg splint as requested and advised to follow-up with her orthopedist in 2 days. Return precautions were discussed with the patient and she verbalized understanding and agreement with treatment plan. Discharge Plan Departure Patient Disposition: Home Clinical Impression: Ankle pain Qualifiers: Chronicity: acute Laterality: right Qualified Code(s): M25.571 - Pain in right ankle and joints of right foot Acute knee pain Qualifiers: Laterality: right Qualified Code(s): M25.561 - Pain in right knee Discharge Date/Time: 06/07/20 15:35 Instructions: DI for Knee Sprain, DI for Ankle Pain Activity Restrictions/Additional Instructions: You have been diagnosed with [right ankle and knee pain and encounter for re-application of splint on affected leg to stabilize this as your orthopedist requested for pain management]. What to do: *Take your medications as directed. You can use [id number] Tylenol as needed for pain. *Follow up with your primary care provider in 2-3 days, call for an appointment. Please follow-up with orthopedist in [place] on Sunday as scheduled for further evaluation and treatment. Let them know you were seen in the ED and that we asked you to be seen in follow up. *Return to ED if you have any new, worsening, or concerning symptoms, such as [worsening pain, tingling/numbness/weakness to affected leg, chest pain, breathing difficulty, unable to tolerate fluids or any acute concerns]. Prescriptions: No Action losartan 50 mg tablet 50 mg PO DAILY RF: 0 (DME) blood-glucose meter [True Metrix Air Glucose Meter[place] [facility] [place] RF: 0 glipizide 10 mg tablet 10 mg PO BID RF: 0 nortriptyline 75 mg capsule 75 mg PO QPM RF: 0 pantoprazole 40 mg tablet,delayed release (DR/EC) 40 mg PO DAILY RF: 0 ferrous sulfate 325 mg (65 mg iron) tablet 325 mg PO DAILY RF: 0 metformin 1,000 mg tablet 1,000 mg PO BID RF: 0 lovastatin 20 mg tablet 20 mg PO QPM RF: 0 sertraline 50 mg tablet 50 mg PO DAILY RF: 0 Victoza 2-Ruddy 0.6 mg/0.1 mL (18 mg/3 mL) pen injector See Rx Instructions .ROUTE .COMPLEX RF: 0 (DME) lancets [TRUEplus Lancets] 30 gauge [facility] [place]CE[place] RF: 0 Toujeo SoloStar U-300 Insulin 300 unit/mL (1.5 mL) insulin pen 42 unit SUBCUT DAILY RF: 0 hydrocodone-acetaminophen [Zirconia] 5-325 mg tablet 1 tab PO Q4-6H PRN (Reason: pain) Qty: 5 RF: 0 cyclobenzaprine 10 mg tablet 10 mg PO TID PRN (Reason: muscle spasm) Qty: 20 RF: 0 hydrocodone-acetaminophen [Zirconia] 5-325 mg tablet 1 tab PO Q4-6H PRN (Reason: pain) Qty: 7 RF: 0 hydrocodone-acetaminophen 5-325 mg tablet 1 tab PO Q4-6H PRN (Reason: pain) Qty: 10 RF: 0 buspirone 10 mg tablet RF: 0 ferrous sulfate 325 mg (65 mg iron) tablet RF: 0 pioglitazone 15 mg tablet RF: 0 famotidine 40 mg tablet RF: 0 metformin 1,000 mg tablet RF: 0 losartan 100 mg tablet RF: 0 Toujeo SoloStar U-300 Insulin 300 unit/mL (1.5 mL) insulin pen SUBCUT RF: 0 pioglitazone 15 mg tablet RF: 0 metformin 1,000 mg tablet RF: 0 metoprolol succinate 25 mg tablet extended release 24 hr PO RF: 0 Aspirin Childrens 81 mg RF: 0 Referrals: Romina Reese, JIMI, EMBALMER APPRENTICE-C [Primary Care Provider] - <Genie Lowery DO - Last Filed: 06/12/20 07:33> [facility] ED Attending Josephineature Attestation: I was immediately available in the department for consultation. Documentation has been reviewed. I agree with assessment and plan.
== END 2020-06-07 15:35 | disposition home or self-care (01) ==
PROVIDERS: Emergency Provider Nurse Practitioner Family; PCP Nurse Practitioner Family
DX: M25.561 Pain in right knee (principal); M25.571 Pain in right ankle and joints of right foot
CPT/HCPCS: 29505; 99283

== ENCOUNTER 2020-06-22 14:46 | Emergency (ER) | payer OTHER, MEDICAID, SELFPAY ==
[2020-06-22 15:48] VITALS: BP 139/68; PULSE 88; RESP 16; TEMP 35.6; O2SAT 97; BMI 43.4
[2020-06-22] MEDS: CYCLOBENZAPRINE 10 MG TABLET PO (19:15)
[2020-06-22 20:21] VITALS: BP 134/70; PULSE 81; RESP 18; O2SAT 99
--- NOTE | 2020-06-22 21:59 | ED.EXTPRO ---
HPI - Extremity Problem <JIMI Hickman - Last Filed: 06/22/20 22:30> General Chief complaint: Extremity Problem,Nontraumatic Stated complaint: rt akle injury Time Seen by Provider: 06/22/20 18:24 Source: patient Mode of arrival: Wheelchair Limitations: no limitations History of Present Illness HPI Narrative: This is a 55 year female of severe osteoarthritis with several orthopedic surgeries on extremities and fibromyalgia presents to ED requesting a splint on right lower extremity. Patient uses electric wheelchair for mobility. Patient was seen on 06/07/20 and requested a long leg splint on affected leg before being re-evaluated by her orthopedist Juan Francisco Pearl. She was evaluated by Dr. Borjas one week ago and long leg splint was removed and was instructed to bear weight as tolerable. Patient reports she attempted to bear weight but was unable to due to significant pain and the right ankle had turned outward when tried to ambulate at that time. She contacted Dr. Borjas and suggested to come into ED for a short leg splint for comfort and reports she has on 07/15/20 to follow up. She states Dr. Borjas is working on getting MRI test set up for her with concerns for ligamentous injury in her ankle. Patient reports intact sensation and is able to move her toes. Patient reports is about to visit pain management provider in a couple of days and report taking Flexeril for chronic pain and requesting a medication while in ED. Related Data Home Medications Medication Instructions Recorded Confirmed blood-glucose meter [True Metrix 05/29/19 05/29/19 Air Glucose Meter] ferrous sulfate 325 mg PO DAILY 05/29/19 05/29/19 glipizide 10 mg PO BID 05/29/19 05/29/19 insulin glargine U-300 conc 42 unit SUBCUT DAILY 05/29/19 05/29/19 [[employer] SoloStar U-300 Insulin] lancets [TRUEplus Lancets] 05/29/19 05/29/19 lovastatin 20 mg PO QPM 05/29/19 05/29/19 metformin 1,000 mg PO BID 05/29/19 05/29/19 nortriptyline 75 mg PO QPM 05/29/19 05/29/19 pantoprazole 40 mg PO DAILY 05/29/19 05/29/19 sertraline 50 mg PO DAILY 05/29/19 05/29/19 Aspirin Childrens 81 mg 06/08/20 buspirone mg 06/08/20 famotidine 06/08/20 losartan 06/08/20 metoprolol succinate PO 06/08/20 pioglitazone mg 06/08/20 cyclobenzaprine mg 06/22/20 Allergies Allergy/AdvReac Type Severity Reaction Status Date / Time amoxicillin [From Augmentin] Allergy Verified 12/08/19 20:16 clavulanic acid Allergy Verified 12/08/19 20:16 [From Augmentin] duloxetine Allergy Verified 02/24/20 14:02 ibuprofen Allergy Verified 06/08/20 00:21 liraglutide Allergy Verified 02/24/20 14:02 quinine Allergy Hypotension Verified 02/24/20 14:02 Sulfa (Sulfonamide Allergy Verified 12/08/19 20:16 Antibiotics) Review of Systems <JIMI Hickman - Last Filed: 06/22/20 22:30> Review of Systems Narrative: General: Denies fever, chills, fatigue, malaise, sweats. Respiratory: Denies dyspnea, cough, wheezing, hemoptysis, sputum. Cardiovascular: Denies chest pain, palpitations, orthopnea, edema. Gastrointestinal: Denies nausea, vomiting, abdominal pain, diarrhea, constipation, melena. : Denies dysuria, frequency, incontinence, hematuria, urinary retention. Musculoskeletal: See HPI Skin: Denies rash, skin lesions, or other. Patient History <JIMI Hickman - Last Filed: 06/22/20 22:30> Medical History Anxiety (Acute) Arthritis (Acute) Depression (Acute) Diabetes (Acute) Fibromyalgia (Acute) GERD (gastroesophageal reflux disease) (Acute) Hyperlipidemia (Acute) Hypertension (Acute) Osteoarthritis (Acute) Surgical History History of appendectomy (Acute) History of cholecystectomy (Acute) History of hip surgery (Acute) History of knee surgery (Acute) History of shoulder surgery (Acute) History of total hysterectomy (Acute) Social History Smoking Status: Unknown if ever smoked Smoking Status: Unknown if ever smoked alcohol intake frequency: holidays/special occasions only Substance Use Type: does not use Exam <ANGLE HickmanP - Last Filed: 06/22/20 22:30> Narrative Exam Narrative: General appearance: well developed, well nourished, in no acute distress. Head: normocephalic, atraumatic, no scalp lesions, non-tender. ENT: Hearing grossly intact. Nose without bleeding, purulent discharge. Airway patent. Neck/Thyroid: neck supple, full range of motion, no visible masses or meningeal signs. No JVD, non-tender without lymphadenopathy. Skin: no suspicious rashes, lesions over visible areas. Warm and dry and appropriate color for ethnicity. Heart: no clubbing, no cyanosis, no edema. Lungs: Breathing even and unlabored. No stridor. No accessory muscles used. Able to speak in full sentences. Chest: normal shape and expansion. Abdomen: non-obese, non-distended. Neurologic: alert and oriented. Cognitive exam, [employer] [place] and PNS grossly intact on informal exam. Psych: good eye contact, normal affect. Initial Vital Signs Initial Vital Signs: Vital Signs Temperature 96.1 F L 06/22/20 15:48 Pulse Rate 88 06/22/20 15:48 Respiratory Rate 16 06/22/20 15:48 Blood Pressure 139/68 06/22/20 15:48 Pulse Oximetry 97 06/22/20 15:48 Extrem Right lower extremity: ankle Details: normal to inspection, tenderness Location: of the lateral malleolus and of the medial malleolus, no edema, abnormal ROM Details: pain with active ROM and pain with passive ROM and other (no erythema); no unusual warmth and no lacerations and foot Details: normal to inspection, tenderness Location: of the dorsal foot, toes with normal ROM, vascular exam Details: dorsalis pedis pulse present and normal capillary refill and motor-sensory exam Details: light-touch normal; no unusual warmth, no laceration and no ecchymosis Left lower extremity: lower leg (lower leg/foot has a cast on with cracked heel) <Juan Francisco Dawson DO - Last Filed: 06/22/20 22:31> Initial Vital Signs Initial Vital Signs: Vital Signs Temperature 96.1 F L 06/22/20 15:48 Pulse Rate 88 06/22/20 15:48 Respiratory Rate 16 06/22/20 15:48 Blood Pressure 139/68 06/22/20 15:48 Pulse Oximetry 97 06/22/20 15:48 Procedures <JIMI Hickman - Last Filed: 06/22/20 22:30> Orthopedic Splinting/Casting Injury #1: Side: right Lower Extremity Injury Location: ankle Lower Extremity Immobilizer: posterior splint and stirrup splint Other Orthopedic Equipment: other (uses own electric wheelchair) Post splinting neuro exam: intact Post splinting vascular exam: intact Placed by: Nursing Additional Comments: Left leg cast with cracked heel reinforced with a small orthoglass splint on top of the cast Scores <JIMI Hickman - Last Filed: 06/22/20 22:30> GCS [place] coma scale eye opening: Spontaneous [place] coma scale verbal response: Orientated [place] coma scale motor response: Obey commands [place] coma scale total score: 15 Course <JIMI Hickman - Last Filed: 06/22/20 22:30> Orders Ordered: Discontinued Medications Cyclobenzaprine HCl (Flexeril) 10 mg PO NOW ONE Stop: 06/22/20 18:42 Last Admin: 06/22/20 19:15 Dose: 10 mg Documented by: JCARLOS Vital Signs Vital signs: Vital Signs - 8 hr 06/22/20 15:48 06/22/20 20:21 Temperature 96.1 F L Pulse Rate 88 81 Respiratory Rate 16 18 Blood Pressure 139/68 134/70 Pulse Oximetry 97 99 <Juan Francisco Dawson DO - Last Filed: 06/22/20 22:31> Orders Ordered: Discontinued Medications Cyclobenzaprine HCl (Flexeril) 10 mg PO NOW ONE Stop: 06/22/20 18:42 Last Admin: 06/22/20 19:15 Dose: 10 mg Documented by: JCARLOS Vital Signs Vital signs: Vital Signs - 8 hr 06/22/20 15:48 06/22/20 20:21 Temperature 96.1 F L Pulse Rate 88 81 Respiratory Rate 16 18 Blood Pressure 139/68 134/70 Pulse Oximetry 97 99 MDM - Extremity (Nontraumatic) <JIMI Hickman - Last Filed: 06/22/20 22:30> Differential Diagnosis Differential diagnosis: Likely other (left ankle fracture, ankle sprain/strain) Medical Records Attestation: I reviewed the patient's medical records. MDM Narrative Medical decision making narrative: This is a 55 year female presents to ED for the 2nd time requesting a splint in right leg. She sees Dr. Juan Francisco Borjas in [place] as her orthopedist. Right long leg splint was removed 1 week ago and she has been having difficult time bearing weight or taking steps due to pain in her bilateral ankle endorse or foot. Patient reports Dr. Borjas is in process getting MRI test done to evaluate ligamentous injury in her ankle. Considered reimaging right ankle x-ray since patient reports right ankle was deviated laterally when she attempted to bear weight. She reports had x-ray test done by Dr. Borjas and declining another xray test today. Physical exam is unremarkable on right ankle and foot. Intact sensation and pulses distally. No obvious swelling to affected ankle or foot. Given unremarkable physical exam with intact sensation and distal pulses, will defer x-ray test this patient declined. Short leg posterior and stirrup splint has been applied. Provided with 1 dose of Flexeril as requested and electronic RX list verified as this is one of her current medications for pain management regimen. Small piece of ortho glass splint reinforced on left heel where she has a cast with cracked heel. Return precautions were discussed with patient and advised to follow up with Dr. Borjas and she verbalized the understanding and agreement with the treatment plan. Discharge Plan Departure Patient Disposition: Home Clinical Impression: Acute ankle pain Qualifiers: Laterality: right Qualified Code(s): M25.571 - Pain in right ankle and joints of right foot Discharge Date/Time: 06/22/20 20:21 Instructions: DI for Ankle Pain Activity Restrictions/Additional Instructions: You have been diagnosed with [right bilateral and dorsal ankle pain. You declined x-ray test today. Please follow-up with orthopedist Dr. Borjas for further imaging test as you stated. New posterior and stirrup short-leg splint has been applied on right leg. Please use use electrical wheelchair for mobility.]. What to do: *Take your medications as directed. You can take [id number] Tylenol and your pain medication as needed. *Follow up with your primary care provider in 2-3 days, call for an appointment. Let them know you were seen in the ED and that we asked you to be seen in follow up. *Return to ED if you have any new, worsening, or concerning symptoms, such as [worsening pain, increasing numbness/tingling/coolness/paleness to toes, please elevate affected leg as needed if has increased swelling, chest pain, breathing difficulty, or any acute concerns]. Prescriptions: No Action (DME) blood-glucose meter [True Metrix Air Glucose Meter] [facility] [place] MISCELLANEOUS RF: 0 glipizide 10 mg tablet 10 mg PO BID RF: 0 nortriptyline 75 mg capsule 75 mg PO QPM RF: 0 pantoprazole 40 mg tablet,delayed release (DR/EC) 40 mg PO DAILY RF: 0 ferrous sulfate 325 mg (65 mg iron) tablet 325 mg PO DAILY RF: 0 metformin 1,000 mg tablet 1,000 mg PO BID RF: 0 lovastatin 20 mg tablet 20 mg PO QPM RF: 0 sertraline 50 mg tablet 50 mg PO DAILY RF: 0 (DME) lancets [TRUEplus Lancets] 30 gauge [facility] [place] MISCELLANEOUS RF: 0 [employer] SoloStar U-300 Insulin 300 unit/mL (1.5 mL) insulin pen 42 unit SUBCUT DAILY RF: 0 buspirone 10 mg tablet RF: 0 pioglitazone 15 mg tablet RF: 0 famotidine 40 mg tablet RF: 0 losartan 100 mg tablet RF: 0 metoprolol succinate 25 mg tablet extended release 24 hr PO RF: 0 Aspirin Childrens 81 mg RF: 0 cyclobenzaprine 5 mg tablet RF: 0 Referrals: Juan Francisco Borjas MD [Non-Staff] - Romina Reese ARNP, [employer] [facility] [Primary Care Provider] - <Juan Francisco Dawson DO - Last Filed: 06/22/20 22:31> Cosign ED Attending Cosamanuelature Attestation: Dr Dawson Co-Sign Statement: I was available for consultation during this patient's emergency department visit. This chart is signed by myself for administrative purposes only. I did not have direct contact with this patient during this visit. They were seen independently by the APC.
== END 2020-06-22 20:21 | disposition home or self-care (01) ==
PROVIDERS: Emergency Provider Nurse Practitioner Family; PCP Nurse Practitioner Family
DX: M25.571 Pain in right ankle and joints of right foot (principal)
CPT/HCPCS: 29540; 99283

== ENCOUNTER → 2020-07-07 13:29 | Outpatient (CLI) | payer OTHER, MEDICAID, SELFPAY | PROVIDERS: PCP Nurse Practitioner Family; Referring Provider Nurse Practitioner Family; Visit Provider Family Medicine | DX: S21.102A Unspecified open wound of left front wall of thorax without penetration into thoracic cavity, initial encounter (principal); E11.622 Type 2 diabetes mellitus with other skin ulcer; L03.313 Cellulitis of chest wall | CPT/HCPCS: 87070; 87075; 87077; 87147; 87186; 87205; 99213; 99214 ==

== ENCOUNTER → 2020-07-14 15:35 | Outpatient (CLI) | payer OTHER, MEDICAID, SELFPAY | PROVIDERS: PCP Nurse Practitioner Family; Referring Provider Nurse Practitioner Family; Visit Provider Family Medicine | DX: S21.102A Unspecified open wound of left front wall of thorax without penetration into thoracic cavity, initial encounter (principal); E11.622 Type 2 diabetes mellitus with other skin ulcer | CPT/HCPCS: 99213 ==

== ENCOUNTER → 2020-07-21 13:28 | Outpatient (CLI) | payer OTHER, MEDICAID, SELFPAY | PROVIDERS: PCP Nurse Practitioner Family; Referring Provider Nurse Practitioner Family; Visit Provider Family Medicine | DX: Z48.01 Encounter for change or removal of surgical wound dressing (principal) | CPT/HCPCS: 99212; 99213 ==

== ENCOUNTER 2020-07-31 14:12 | Emergency (ER) | payer OTHER, MEDICAID, SELFPAY ==
[2020-07-31 14:20] VITALS: BP 140/60; PULSE 88; RESP 12; TEMP 37; O2SAT 98; BMI 43.4
--- NOTE | 2020-07-31 14:46 | PC.NURSE ---
Pt denies any acute injury and says this has been going on for a while and getting worse this last week. States she has arthritis and her doctor recommended get a cast from ED to help with pain as my splint at home is not cutting it. Patient reports sees pain clinic and has RX for vicodin for pain control. Radial pulse +2, capillary refill <3 seconds, full movement rotation noted at elbow and wrist. Patient states unable to move thumb because of pain.
--- NOTE | 2020-07-31 15:03 | DI.RAD.S_ITS ---
PROCEDURE: XR WRIST RT MIN 3V INDICATIONS: right thumb pain, hx OA, RA TECHNIQUE: 3 views of the wrist were acquired. COMPARISON: None. FINDINGS: Bones: Degenerative changes in the triscaphe and first CMC joints. No acute fracture or dislocation. No suspicious lytic or blastic osseous lesion. Scaphoid view: Scaphoid intact. Normal scapholunate interval. Soft tissues: No suspicious soft tissue calcifications. IMPRESSION: No acute finding. Dictated by: Parth Lanier M.D. on 07/31/2020 at 15:22 Approved by: Parth Lanier M.D. on 07/31/2020 at 15:23
--- NOTE | 2020-07-31 16:04 | ED.UPPEXIN ---
HPI - Extremity Injury (Upper) <JIMI Hickman - Last Filed: 07/31/20 16:47> General Chief Complaint: Extremity Injury, Upper Stated Complaint: right thumb joint snapped Time Seen by Provider: 07/31/20 14:45 Source: patient Mode of arrival: Wheelchair Limitations: no limitations History of Present Illness HPI narrative: This is a 55 year female with past medical history rheumatoid arthritis, osteoarthritis, osteopenia, fibromyalgia who sees orthopedic surgeon, Dr. Nasreen Morgan in [place] with significant other with chief complain of nontraumatic right thumb joint pain radiating up to low forearm for last 2-3 days. Patient and given Velcro splint in the past which she had used but reports this is not helping for the pain. She does not think there is a fracture but states after turning pages of the magazine she felt a snapping sensation. Patient reports intact sensation with limited range of motion due to pain. Patient reports pain increases with movement and by palpation. Patient is scheduled for arthroplasty surgery and right wrist in September and is currently working on hyperglycemia before the surgery. Patient was recommended going into local ED by her orthopedist for fiberglass splint. PCP Romina Reese Related Data Home Medications Medication Instructions Recorded Confirmed blood-glucose meter [True Metrix 05/29/19 05/29/19 Air Glucose Meter] ferrous sulfate 325 mg PO DAILY 05/29/19 05/29/19 glipizide 10 mg PO BID 05/29/19 05/29/19 insulin glargine U-300 conc 42 unit SUBCUT DAILY 05/29/19 05/29/19 [[employer] SoloStar U-300 Insulin] lancets [TRUEplus Lancets] 05/29/19 05/29/19 lovastatin 20 mg PO QPM 05/29/19 05/29/19 metformin 1,000 mg PO BID 05/29/19 05/29/19 nortriptyline 75 mg PO QPM 05/29/19 05/29/19 pantoprazole 40 mg PO DAILY 05/29/19 05/29/19 sertraline 50 mg PO DAILY 05/29/19 05/29/19 Aspirin Childrens 81 mg 06/08/20 buspirone mg 06/08/20 famotidine 06/08/20 losartan 06/08/20 metoprolol succinate PO 06/08/20 pioglitazone mg 06/08/20 cyclobenzaprine mg 06/22/20 Allergies Allergy/AdvReac Type Severity Reaction Status Date / Time amoxicillin [From Augmentin] Allergy Verified 07/31/20 14:24 clavulanic acid Allergy Verified 07/31/20 14:24 [From Augmentin] duloxetine Allergy Verified 07/31/20 14:24 ibuprofen Allergy Verified 07/31/20 14:24 liraglutide Allergy Verified 07/31/20 14:24 quinine Allergy Hypotension Verified 07/31/20 14:24 Sulfa (Sulfonamide Allergy Verified 07/31/20 14:24 Antibiotics) Review of Systems <JIMI Hickman - Last Filed: 07/31/20 16:47> Review of Systems Narrative: General: Denies fever, chills, fatigue, malaise, sweats. Respiratory: Denies dyspnea, cough, wheezing, hemoptysis, sputum. Cardiovascular: Denies chest pain, palpitations, orthopnea, edema. Gastrointestinal: Denies nausea, vomiting, abdominal pain, diarrhea, constipation, melena. Musculoskeletal: See HPI Skin: Denies rash, skin lesions, or other. Patient History <JIMI Hickman - Last Filed: 07/31/20 16:47> Medical History (Updated 07/31/20 @ 16:06 by JIMI Hickman) Anxiety Arthritis Depression Diabetes Fibromyalgia GERD (gastroesophageal reflux disease) Hyperlipidemia Hypertension Osteoarthritis Surgical History History of appendectomy History of cholecystectomy History of hip surgery History of knee surgery History of shoulder surgery History of total hysterectomy Social History Smoking Status: Unknown if ever smoked Smoking Status: Unknown if ever smoked alcohol intake frequency: holidays/special occasions only Substance Use Type: does not use Exam <JIMI Hickman - Last Filed: 07/31/20 16:47> Narrative Exam Narrative: General appearance: well developed, well nourished, in no acute distress. Head: normocephalic, atraumatic, no scalp lesions, non-tender. ENT: Bilateral auditory canals clear. Hearing grossly intact. Airway patent. Neck/Thyroid: neck supple, full range of motion, no visible masses or meningeal signs. No JVD, non-tender without lymphadenopathy. Skin: no suspicious rashes, lesions over visible areas. Warm and dry and appropriate color for ethnicity. Heart: no clubbing, no cyanosis, no edema. Lungs: Breathing even and unlabored. No stridor. No accessory muscles used. Able to speak in full sentences. Chest: normal shape and expansion. Abdomen: non-obese, non-distended. Neurologic: alert and oriented. Cognitive exam, ATTENDANT CHILD ACTIVITY and PNS grossly intact on informal exam. Psych: good eye contact, normal affect. Initial Vital Signs Initial Vital Signs: Vital Signs Temperature 98.6 F 07/31/20 14:20 Pulse Rate 88 07/31/20 14:20 Respiratory Rate 12 07/31/20 14:20 Blood Pressure 140/60 07/31/20 14:20 Pulse Oximetry 98 07/31/20 14:20 Extrem Right upper extremity: wrist Details: tenderness (Right thumb) Location: of the distal radius, swelling (Mild swelling on right thumb), abnormal ROM Details: pain with active ROM during and pain with passive ROM during, normal vascular exam and radial pulse present; normal to inspection, no lacerations, no ecchymosis, no crepitus and no deformity and hand Details: normal capillary refill, neuromotor exam abnormal Details: wrist extension abnormal Details: limited by pain, thumb opposition abnormal Details: limited by pain, thumb IP flexion abnormal Details: limited by pain and thumb ADduction abnormal Details: limited by pain, neurosensory exam normal, tenderness Location: of the dorsal hand Location: distally and of the radial aspect and of the thumb, vascular exam Details: radial pulse present and normal capillary refill, abnormal ROM of finger (Thumb) Details: pain with active ROM and pain with passive ROM and swelling Location: of the thumb (Very mild); inspection normal, no abrasions, no lacerations, no ecchymosis and no crepitus <Juan Francisco Dawson DO - Last Filed: 07/31/20 18:30> Initial Vital Signs Initial Vital Signs: Vital Signs Temperature 98.6 F 07/31/20 14:20 Pulse Rate 88 07/31/20 14:20 Respiratory Rate 12 07/31/20 14:20 Blood Pressure 140/60 07/31/20 14:20 Pulse Oximetry 98 07/31/20 14:20 Procedures <JIMI Hickman - Last Filed: 07/31/20 16:47> Orthopedic Splinting/Casting Injury #1: Side: right Upper Extremity Injury Location: hand Upper Extremity Immobilizer: thumb spica Post splinting neuro exam: intact Post splinting vascular exam: intact Placed by: Nursing Scores <JIMI Hickman - Last Filed: 07/31/20 16:47> GCS [place] coma scale eye opening: Spontaneous [place] coma scale verbal response: Orientated [place] coma scale motor response: Obey commands [place] coma scale total score: 15 Course <JIMI Hickman - Last Filed: 07/31/20 16:47> Orders Ordered: ED Orders 07/31/20 15:03 XR wrist RT min 3V Stat Vital Signs Vital signs: Vital Signs - 8 hr 07/31/20 14:20 07/31/20 16:12 Temperature 98.6 F Pulse Rate 88 86 Respiratory Rate 12 16 Blood Pressure 140/60 140/67 Pulse Oximetry 98 98 <Juan Francisco Dawson DO - Last Filed: 07/31/20 18:30> Orders Ordered: ED Orders 07/31/20 15:03 XR wrist RT min 3V Stat Vital Signs Vital signs: Vital Signs - 8 hr 07/31/20 14:20 07/31/20 16:12 Temperature 98.6 F Pulse Rate 88 86 Respiratory Rate 12 16 Blood Pressure 140/60 140/67 Pulse Oximetry 98 98 MDM - Extremity Injury (Upper) <JIMI Hickman - Last Filed: 07/31/20 16:47> Differential Diagnosis Differential diagnosis: Likely other (Osteoarthritis, fracture, tendinitis) Medical Records Attestation: I reviewed the patient's medical records. Imaging Data XR-Wrist RT: Radiologist's Impression: [address] [id number] ReportSigned Patient: Iram Stevens LMR#: [id number]: 1965Acct:[id number]/Sex: 55 / FDate of Service: 07/31/20Loc: EDAccession Number: [id number] Procedure: XR wrist RT min 3V Ordering Provider: Norbert Padilla PROCEDURE: XR WRIST RT MIN 3V INDICATIONS: right thumb pain, hx OA, RA TECHNIQUE: 3 views of the wrist were acquired. COMPARISON: None. FINDINGS: Bones: Degenerative changes in the triscaphe and first CMC joints. No acute fracture or dislocation. No suspicious lytic or blastic osseous lesion. Scaphoid view: Scaphoid intact. Normal scapholunate interval. Soft tissues: No suspicious soft tissue calcifications. IMPRESSION: No acute finding. Dictated by: Parth Lanier M.D. on 07/31/2020 at 15:22 Approved by: Parth Lanier M.D. on 07/31/2020 at 15:23 [facility] Narrative Medical decision making narrative: This is a 55 year female with significant medical history for osteoarthritis rheumatoid arthritis, and osteopenia, who presents to ED in request of fiberglass splint for nontraumatic right thumb pain radiating to wrist stating velcro splint is not helping. Patient was recommended by her orthopedist in [place] for this. Patient has intact sensation and limited range of motion due to pain. Brisk cap refill and intact radial pulse. X-ray test is negative for acute findings but degenerative changes in the triscaphe and 1st CMC joints. Thumb spica Orthoglass splint has been applied for comfort. Return precautions were discussed with patient and advised to follow-up with her orthopedist in next couple of days. Discharge Plan Departure Patient Disposition: Home Clinical Impression: Wrist pain, right Instructions: DI for Wrist Pain Activity Restrictions/Additional Instructions: You have been diagnosed with [right wrist pain likely from arthritis. No indications for fracture per x-ray.]. What to do: *Take your medications as directed. Please use splint that has been provided to you *Follow up with your primary care provider/orthopedist in 2-3 days, call for an appointment. Let them know you were seen in the ED and that we asked you to be seen in follow up. *Return to ED if you have any new, worsening, or concerning symptoms, such as [worsening pain, pale fingertips, tingling/numbness/weakness to affected extremity, chest pain, breathing difficulty, fever, or any acute concerns]. Prescriptions: No Action (DME) blood-glucose meter [True Metrix Air Glucose Meter] misc MISCELLANEOUS RF: 0 glipizide 10 mg tablet 10 mg PO BID RF: 0 nortriptyline 75 mg capsule 75 mg PO QPM RF: 0 pantoprazole 40 mg tablet,delayed release (DR/EC) 40 mg PO DAILY RF: 0 ferrous sulfate 325 mg (65 mg iron) tablet 325 mg PO DAILY RF: 0 metformin 1,000 mg tablet 1,000 mg PO BID RF: 0 lovastatin 20 mg tablet 20 mg PO QPM RF: 0 sertraline 50 mg tablet 50 mg PO DAILY RF: 0 (DME) lancets [TRUEplus Lancets] 30 gauge misc MISCELLANEOUS RF: 0 [employer] SoloStar U-300 Insulin 300 unit/mL (1.5 mL) insulin pen 42 unit SUBCUT DAILY RF: 0 buspirone 10 mg tablet RF: 0 pioglitazone 15 mg tablet RF: 0 famotidine 40 mg tablet RF: 0 losartan 100 mg tablet RF: 0 metoprolol succinate 25 mg tablet extended release 24 hr PO RF: 0 Aspirin Childrens 81 mg RF: 0 cyclobenzaprine 5 mg tablet RF: 0 Referrals: Romina Reese, JIMI, DIE [facility]OLDER-C [Primary Care Provider] - <Juan Francisco Dawson, - Last Filed: 07/31/20 18:30> [facility]: Dr Dawson Co-Sign Statement: I was available for consultation during this patient's emergency department visit. This chart is signed by myself for administrative purposes only. I did not have direct contact with this patient during this visit. They were seen independently by the APC.
[2020-07-31 16:12] VITALS: BP 140/67; PULSE 86; RESP 16; O2SAT 98
== END 2020-07-31 16:12 | disposition home or self-care (01) ==
PROVIDERS: Emergency Provider Nurse Practitioner Family; PCP Nurse Practitioner Family
DX: M25.531 Pain in right wrist (principal)
CPT/HCPCS: 29125; 73110; 99283